=== PATIENT | male | born 1945 | race Caucasian/White ===

== ENCOUNTER 2017-01-05 10:13 | Inpatient (IN) | payer MEDICARE, BC ==
[~2017-01-05] VITALS: Ht 175.3 cm; Wt 109.8 kg
--- NOTE | 2017-01-05 10:20 | NUR ---
MARIA FROM HOME DT "FEELING SICK" , NAUSEA AND VOMITTING SINCE YESTERDAY, PER PATIENT HE HASNT BEEN EATING FOR FEW DAYS AND FEELS WEAK. PT IS AFEBRILE. VSS. PT REPORTED RECENT CLOSE FAMILY MEMBER .
--- NOTE | 2017-01-05 11:00 | NUR ---
ASSUME PT CARE. RESTING IN BED. SYNCOPE WHILE AT A BARBERS CHAIR. STATES, FELT NAUSEATED, BEEN VOMITING SINCE YESTERDAY. STRESSED OUT BECAUSE OF A FAMILY . UPON TRANSFER PT STARTED C/O LT SIDED CHEST PAIN. ON MONITOR. VSS. AWAITING MD MOREL.
--- NOTE | 2017-01-05 11:12 | NUR ---
DR STRAUSS AT BEDSIDE FOR EVAL.
[2017-01-05] MEDS ORDERED: ONDANSETRON HCL/PF 4 MG/2 ML VIAL ONE (11:29)
[2017-01-05] MEDS ORDERED: ASPIRIN 325 MG TABLET ONE (11:29)
[2017-01-05] MEDS ORDERED: ONDANSETRON HCL/PF 4 MG/2 ML VIAL IVP ONE (11:30)
[2017-01-05] MEDS ORDERED: ASPIRIN 325 MG TABLET PO ONE (11:30)
[2017-01-05] MEDS ORDERED: IV NS 0.9% 500 ML BAG IV ONE (11:30)
--- NOTE | 2017-01-05 11:33 | NUR ---
BLOOD DRAWN FROM [facility]. SENT TO LAB.
[2017-01-05 11:39] LABS: BASOPHILS # (AUTO) 0.2 /CMM (0.0-0.2); BASOPHILS % (AUTO) 1.7 % (0.0-2.0); EOSINOPHILS # (AUTO) 0.2 /CMM (0.0-0.7); EOSINOPHILS % (AUTO) 1.7 % (0.0-6.0); HEMATOCRIT 54 % (39-51); HEMOGLOBIN 18.2 g/dL (13.5-17.5); LYMPHOCYTES % (AUTO) 10.2 % (20.0-44.0); MEAN CORPUSCULAR HEMOGLOBIN 30 PG (26.0-33.0); MEAN CORPUSCULAR HGB CONC 34 g/dl (31.0-36.0); MEAN CORPUSCULAR VOLUME 87 fL (80-96); MONOCYTES # (AUTO) 0.8 /CMM (0.1-1.30); MONOCYTES % (AUTO) 8.1 % (2.0-12.0); NEUTROPHILS % (AUTO) 78.3 % (43.0-81.0); PLATELET COUNT (AUTO) 180 /CMM (150-450); RDW COEFFICIENT OF VARIATION 13.8 (11.5-15.0); RED BLOOD CELL COUNT(AUTO) 6.16 MIL/uL (4.5-6.0); WHITE BLOOD COUNT (AUTO) 10.2 K/uL (4.3-11.0)
--- NOTE | 2017-01-05 11:43 | NUR ---
RADIOLOGY AT BEDSIDE FOR CHEST XRAY.
[2017-01-05 11:49] LABS: CALCIUM, SERUM 9.2 mg/dL (8.5-10.1); CARBON DIOXIDE 24 mmol/L (21-32); CHLORIDE 103 mmol/L (98-107); CREATININE 1.4 mg/dL (0.6-1.3); GLUCOSE 321 mg/dL (74-106); POTASSIUM 5.6 mmol/L (3.5-5.1); SODIUM SERUM 136 mmol/L (136-145); UREA NITROGEN, BLOOD 25 mg/dL (7-18)
[2017-01-05 11:53] LABS: INR 0.95 (0.87-1.13); PROTHROMBIN TIME 9.9 SECS (9.5-12.7)
[2017-01-05 11:55] LABS: ALANINE AMINOTRANSFERASE 23 U/L (12-78); ALBUMIN 3.5 g/dL (3.4-5.0); ALKALINE PHOSPHATASE 82 U/L (46-116); ASPARTATE AMINOTRANSFERASE 19 U/L (15-37); BILIRUBIN,DIRECT 0.2 mg/dL (0.0-0.2); BILIRUBIN,TOTAL 0.8 mg/dL (0.2-1.0); TOTAL PROTEIN, SERUM 7.7 g/dL (6.4-8.2)
[2017-01-05 11:57] LABS: TROPONIN I < 0.017 ng/mL (0.00-0.056)
[2017-01-05] MEDS ORDERED: BENZOIN COMPOUND TINCT 60 ML BOTTLE TP ONE (12:00)
[2017-01-05 12:10] LABS: LYMPHOCYTES % (MANUAL) 8 % (16-48); MONOCYTES % (MANUAL) 3 % (0-11.0); NEUTROPHILS % (MANUAL) 89 (42-76)
[2017-01-05] MEDS ORDERED: IV NS 0.9% 250 ML IV ONE (12:17)
[2017-01-05] MEDS ORDERED: IOHEXOL-300 100 ML VIAL IV ONE (12:17)
--- NOTE | 2017-01-05 12:25 | NUR ---
PT TO RADIOLOGY FOR ABDOMINAL CT SCAN VIA WHEELCHAIR.
[2017-01-05] MEDS ORDERED: IV NS 0.9% 1,000 ML BAG IV ONE ×2 (12:30→14:00)
--- NOTE | 2017-01-05 13:41 | NUR ---
called house sup for tele bed
--- NOTE | 2017-01-05 13:42 | NUR ---
called epic for pt admit
[2017-01-05] MEDS ORDERED: GEMF600T3 PO (13:54)
[2017-01-05] MEDS ORDERED: ATEN25TA PO (13:54)
[2017-01-05] MEDS ORDERED: METF500T4 PO (13:54)
[2017-01-05] MEDS ORDERED: BENA10TA2 PO (13:54)
[2017-01-05] MEDS ORDERED: GLIP5TAB13 PO (13:54)
[2017-01-05] MEDS ORDERED: ASPI81TA2 PO (13:54)
[2017-01-05] MEDS ORDERED: INSULIN REGULAR, HUMAN 100 UNIT/ML 10 ML VIAL IV ONE (14:00)
[2017-01-05] MEDS ORDERED: CALCIUM CHLORIDE 1,000 MG/10 ML DISP.SYRIN IV ONE (14:00)
[2017-01-05] MEDS ORDERED: SODIUM BICARBONATE SYR 50 MEQ/50 ML DISP.SYRIN IV ONE (14:00)
[2017-01-05] MEDS ORDERED: DEXTROSE 50%-WATER 50 ML DISP.SYRIN IV ONE (14:00)
--- NOTE | 2017-01-05 14:01 | NUR ---
BED ASSIGNMENT TELE 310-1
[2017-01-05] MEDS ORDERED: DEXTROSE 50%-WATER 50 ML DISP.SYRIN ONE (14:02)
[2017-01-05] MEDS ORDERED: CALCIUM CHLORIDE 1,000 MG/10 ML DISP.SYRIN ONE (14:02)
[2017-01-05] MEDS ORDERED: INSULIN REGULAR, HUMAN 100 UNIT/ML 10 ML VIAL ONE (14:03)
--- NOTE | 2017-01-05 14:20 | NUR ---
DR GUIDO MADE AWARE OF SODIUM BICARB SHORTAGE PER PHARMACY. SODIUM BICARB ORDER D/C'D.
[2017-01-05] MEDS ORDERED: IV NS 0.9% 1,000 ML IV PRN (14:24)
[2017-01-05] MEDS ORDERED: ZOLPIDEM TARTRATE 5 MG TABLET PO PRN (14:30)
[2017-01-05] MEDS ORDERED: MAG HYDROX/AL HYDROX/SIMETH 30 ML UDC PO PRN (14:30)
[2017-01-05] MEDS ORDERED: HYDROCODONE/APAP 5/325MG 1 EACH TABLET PO PRN (14:30)
[2017-01-05] MEDS ORDERED: ALPRAZOLAM 0.25 MG TABLET PO PRN (14:30)
[2017-01-05] MEDS ORDERED: ONDANSETRON HCL/PF 4 MG/2 ML VIAL IVP PRN (14:30)
[2017-01-05] MEDS ORDERED: Z GUARD REMEDY 2 OZ OINT TP PRN (14:30)
[2017-01-05] MEDS ORDERED: DEXTROSE 50%-WATER 50 ML DISP.SYRIN IV PRN (14:30)
[2017-01-05] MEDS ORDERED: MAGNESIUM HYDROXIDE 30 ML UDC PO PRN (14:30)
[2017-01-05] MEDS ORDERED: ACETAMINOPHEN 325 MG TABLET PO PRN (14:30)
--- NOTE | 2017-01-05 14:43 | NUR ---
REPORT GIVEN TO RAAD. PT AWAITING TRANSFER TO FLOOR.
[2017-01-05 15:40] VITALS: BP 116/78
[2017-01-05 16:00] VITALS: BP 116/78
--- NOTE | 2017-01-05 17:30 | NUR ---
RN NOTES ADMISSION RECEIVED PT. A&OX4. BREATHING UNLABORED AND EVENLY. IV ACCESS LEFT ANTECUBITAL INTACT AND PATENT WITH SALINE FLUSH. PT. REPORTED HIS MOTHER RECENTLY. WILL ASSESS AND MONITOR.
--- NOTE | 2017-01-05 17:35 | NUR ---
RN NOTES PLACED PT. ON TELE MONITOR AND HAS SINUS RHYTHM 81 BPM.
[2017-01-05] MEDS: BLOOD SUGAR DIAGNOSTIC 1 EACH STRIP VI SCH ×2 (19:00→22:12)
[2017-01-05] MEDS: glipiZIDE 5 MG TABLET PO SCH (19:30)
[2017-01-05] MEDS: METFORMIN 500 MG TABLET PO SCH (19:30)
--- NOTE | 2017-01-05 19:30 | NUR ---
RN NOTES RECEIVED PT AWAKE ON BED, A/OX4, SR ON TELE MONITOR HR-68, DENIES PAIN, NO SOB, CALL LIGHT WITHIN REACH, SIDERAILS UPX2 CONTINUE TO MONITOR
--- NOTE | 2017-01-05 19:30 | NUR ---
PT. HAD PELVIC.ABDOMINAL CT WITH IODINE CONTRAST AT 11:23 AM PER RADIOLOGY PT. CANNOT HAVE ANY FORM OF METFORMIN FOR 48HS. METFORMIN WAS NOT ADMINISTERED TO LOWER BLOOD SUGAR.
--- NOTE | 2017-01-05 19:45 | NUR ---
RN/TELE CLOSING NOTES PT. IN BED A&OX4. BREATHING UNLABORED AND EVENLY ON ROOM AIR. IV ACCESS INTACT AND PATENT. BED IS IN LOWEST POSITION. 2 SIDE RAILS UP, AND INSTRUCTED PT. TO USE CALL LIGHT FOR ASSISTANCE. PICTURES TAKEN OF SACRAL RASH AND PLACED PICTURE IN CHART.
[2017-01-05 20:00] VITALS: BP 105/66
--- NOTE | 2017-01-05 22:21 | NUR ---
RN NOTES BLOOD SUGAR 145- REFUSED INSULIN COVERAGE
[2017-01-06] VITALS (7 sets, daily range): BP systolic 107–116; BP diastolic 51–93
[2017-01-06 05:00] LABS: APPEARANCE,URINE CLEAR (CLEAR); BILIRUBIN,URINE NEGATIVE (NEGATIVE); BLOOD, URINE 1+ Ery/uL (NEGATIVE); COLOR,URINE YELLOW (YELLOW); KETONES,URINE NEGATIVE (NEGATIVE); LEUKOCYTE ESTERASE ,URINE NEGATIVE (NEGATIVE); NITRITE, URINE NEGATIVE (NEGATIVE); PH,URINE 5.5 (5.0-8.0); PROTEIN,URINE TRACE mg/dl (NEGATIVE); UGLUCOSE TRACE mg/dL (NEGATIVE); UROBILINOGEN,URINE 0.2 EU/dL (0.2)
[2017-01-06 05:16] LABS: BACTERIA,URINE None seen /HPF (None Seen); RBC,URINE 0-2 /HPF (0-2); SQUAMOUS EPITHELIAL CELL,UR Rare /HPF (None Seen); WBC,URINE 0-2 /HPF (0-3)
--- NOTE | 2017-01-06 06:26 | NUR ---
RN NOTES PT BLOOD SUGAR-133 REFUSED INSULIN COVERAGE.. PT STATED THAT HE DOESN'T TAKE INSULIN AT HOME
--- NOTE | 2017-01-06 06:27 | NUR ---
RN NOTES AWAKE, DENIES PAIN, STILL REFUSING TO HOOK BACK ON HIS IV FLUID, NO SOB, MORNING CARE RENDERED, PT. NEEDS ATTENDED
[2017-01-06 06:36] LABS: BASOPHILS % (AUTO) 0.4 % (0.0-2.0); EOSINOPHILS # (AUTO) 0.4 /CMM (0.0-0.7); EOSINOPHILS % (AUTO) 4.6 % (0.0-6.0); HEMATOCRIT 52 % (39-51); HEMOGLOBIN 17.2 g/dL (13.5-17.5); LYMPHOCYTES # (AUTO) 1.9 /CMM (0.8-4.8); LYMPHOCYTES % (AUTO) 20.3 % (20.0-44.0); MEAN CORPUSCULAR HEMOGLOBIN 29 PG (26.0-33.0); MEAN CORPUSCULAR HGB CONC 33 g/dl (31.0-36.0); MEAN CORPUSCULAR VOLUME 88 fL (80-96); MONOCYTES % (AUTO) 10.3 % (2.0-12.0); NEUTROPHILS % (AUTO) 64.4 % (43.0-81.0); PLATELET COUNT (AUTO) 161 /CMM (150-450); RDW COEFFICIENT OF VARIATION 14.6 (11.5-15.0); RED BLOOD CELL COUNT(AUTO) 5.94 MIL/uL (4.5-6.0); WHITE BLOOD COUNT (AUTO) 9.2 K/uL (4.3-11.0)
[2017-01-06 06:53] LABS: CALCIUM, SERUM 8.9 mg/dL (8.5-10.1); CREATININE 1.3 mg/dL (0.6-1.3); MAGNESIUM 1.8 mg/dL (1.8-2.4); PHOSPHORUS 4.3 mg/dL (2.5-4.9); POTASSIUM 4.5 mmol/L (3.5-5.1)
[2017-01-06] MEDS: BLOOD SUGAR DIAGNOSTIC 1 EACH STRIP VI SCH ×4 (07:45→21:30)
--- NOTE | 2017-01-06 08:00 | NUR ---
RN NOTES RECEIVED PATIENT IN THE ROOM, A/O X3, NO RESPIRATORY DISTRESS, V/S STABLE, ENCOURAGED TO EXPRESS FEELINGS AND CONCERNS. PATIENT DENIED PAIN AT THIS TIME, PATIENT MED COMPLIANT, ENCOURAGED TO INCREASE FLUID INTAKE, PATIENT AMBULATORY, SAFETY PRECAUTION MAINTAINED ALL THE TIME. CALL LIGHT WITHIN THE PATIENT TO REACH. CONTINUED MO MONITORING.
[2017-01-06] MEDS: METFORMIN 500 MG TABLET PO SCH ×3 (08:24→16:34)
[2017-01-06] MEDS: glipiZIDE 5 MG TABLET PO SCH ×2 (08:24→17:01)
[2017-01-06] MEDS: ASPIRIN 81 MG TAB.CHEW PO SCH (08:24)
[2017-01-06] MEDS: BENAZEPRIL HCL 10 MG TABLET PO SCH (08:25)
[2017-01-06] MEDS ORDERED: ATENOLOL 25 MG TABLET PO SCH (09:00)
[2017-01-06] MEDS ORDERED: GEMFIBROZIL 600 MG TABLET PO SCH (09:00)
[2017-01-06] MEDS: ATORVASTATIN 10 MG TABLET PO SCH (09:30)
[2017-01-06] MEDS: CARVEDILOL 12.5 MG TABLET PO SCH ×2 (09:41→21:30)
[2017-01-06] MEDS: INSULIN REGULAR, HUMAN 100 UNIT/ML 3 ML VIAL SQ PRN ×2 (13:10→17:03)
[2017-01-06] MEDS: ALPRAZOLAM 0.25 MG TABLET PO PRN ×2 (13:14→21:42)
--- NOTE | 2017-01-06 13:14 | NUR ---
RN NOTES PATIENT IN THE ROOM WITH FAMILY MEMBER, BS-234 MG/DL, V/S STABLE, ANXIOUS, ADMINISTERED XANAX 1 MG PO PRN PER PATIENT REQUEST, NO ACUTE DISTRESS, CALL LIGHT WITHIN THE PATIENT TO REACH, SAFETY PRECAUTION MAINTAINED ALL THE TIME. CONTINUED MONITORING.
--- NOTE | 2017-01-06 16:00 | NUR ---
RN NOTES PATIENT STABLE AT THIS TIME, MEDICATION WERE ADMINISTERED FOR ANXIETY EFFECTIVE, FAMILY NEXT TO THE PATIENT, NO ACUTE / NO RESPIRATORY DISTRESS, CALL LIGHT WITHIN TO REACH, SAFETY PRECAUTION MAINTAINED ALL THE TIME.
--- NOTE | 2017-01-06 18:40 | NUR ---
RN NOTES PATIENT IN THE ROOM, NO ACUTE DISTRESS, BS-208 MG/DL, PATIENT MED COMPLIANT, V/S STABLE, PATIENT AMBULATORY SELF CARE, FAMILY NEXT TO THE BED. CALL LIGHT WITHIN TO REACH, SAFETY PRECAUTION MAINTAINED ALL THE TIME. ONCOMING NURSE NOTIFIED CONTINUED PLAN OF CARE.
--- NOTE | 2017-01-06 19:40 | NUR ---
LOGISTICS PLANNING MANAGER NOTE: PATIENT RESTING IN BED, NO ACUTE DISTRESS NOTED. BREATHING EVEN AND UNLABORED, NO SOB NOTED. PATIENT CONTINUES TO REFUSE TO HAVE IV INSERTED, EXPLAINED RISK AND BENEFITS, BUT CONTINUE TO REFUSED AT THIS TIME. NO S/S OF HYPER/HYPOGLYCEMIA NOTED. BED LOCKED AND IN LOWEST POSITION, CALL LIGHT IN REACH. WILL CONTINUE TO MONITOR.
--- NOTE | 2017-01-06 21:45 | NUR ---
SOIL TECHNOLOGIST NOTE: PATIENT BLOOD SUGAR LEVEL 190 MG/DL, PATIENT TO RECEIVE 3 UNITS OF INSULIN PER SLIDING SCALE. NO S/S OF HYPERGLYCEMIA NOTED. WILL CONTINUE TO MONITOR.
[2017-01-06] MEDS: *INSULIN REGULAR(HUMULIN R)HUM 100 UNIT/ML VIAL SQ PRN (21:53)
--- NOTE | 2017-01-06 22:00 | NUR ---
VISITING HOUSEKEEPER NOTE: PATIENT REQUESTING XANAX, XANAX 1MG ORAL GIVE PER MD ORDER. WILL CONTINUE TO MONITOR.
[2017-01-07] VITALS: BP 104/76
[2017-01-07 04:00] VITALS: BP 130/74
[2017-01-07 06:25] LABS: BASOPHILS % (AUTO) 0.3 % (0.0-2.0); EOSINOPHILS # (AUTO) 0.5 /CMM (0.0-0.7); EOSINOPHILS % (AUTO) 5.1 % (0.0-6.0); HEMATOCRIT 53 % (39-51); HEMOGLOBIN 17.6 g/dL (13.5-17.5); LYMPHOCYTES # (AUTO) 1.9 /CMM (0.8-4.8); LYMPHOCYTES % (AUTO) 21.6 % (20.0-44.0); MEAN CORPUSCULAR HEMOGLOBIN 29 PG (26.0-33.0); MEAN CORPUSCULAR HGB CONC 33 g/dl (31.0-36.0); MEAN CORPUSCULAR VOLUME 88 fL (80-96); MONOCYTES # (AUTO) 0.9 /CMM (0.1-1.30); NEUTROPHILS # (AUTO) 5.6 /CMM (1.8-8.9); PLATELET COUNT (AUTO) 161 /CMM (150-450); RDW COEFFICIENT OF VARIATION 14.1 (11.5-15.0); RED BLOOD CELL COUNT(AUTO) 6.06 MIL/uL (4.5-6.0); WHITE BLOOD COUNT (AUTO) 8.8 K/uL (4.3-11.0)
--- NOTE | 2017-01-07 06:25 | NUR ---
BENCH ASSEMBLER OPERATOR NOTE: PATIENT RESTING IN BED, NO ACUTE DISTRESS NOTED. BREATHING EVEN AND UNLABORED, NO SOB NOTED. PATIENT BLOOD SUGAR LEVEL 258 MG/DL, PATIENT TO RECEIVE 9 UNITS OF INSULIN PER SLIDING SCALE. NO S/S OF HYPER/HYPOGLYCEMIA NOTED. BED LOCKED AND IN LOWEST POSITION, CALL LIGHT IN REACH. WILL ENDORSE TO DAY NURSE TO CONTINUE WITH PLAN OF CARE. Addendum: 01/07/17 at 0646 by ANDREE CORRALES RN TELE READING SR WITH BBB 73
[2017-01-07 06:39] LABS: CALCIUM, SERUM 8.3 mg/dL (8.5-10.1); CREATININE 1.5 mg/dL (0.6-1.3); MAGNESIUM 1.9 mg/dL (1.8-2.4); PHOSPHORUS 3.5 mg/dL (2.5-4.9); POTASSIUM 4.1 mmol/L (3.5-5.1)
[2017-01-07] MEDS: INSULIN REGULAR, HUMAN 100 UNIT/ML 3 ML VIAL SQ PRN ×3 (06:41→17:06)
[2017-01-07] MEDS: BLOOD SUGAR DIAGNOSTIC 1 EACH STRIP VI SCH ×4 (06:42→22:00)
--- NOTE | 2017-01-07 07:52 | NUR ---
RELIEF DRILLER: INITIAL NOTE RECEIVED PT A/OX4. ON TELE MONITOR. WITH SR OF 75. NO DISTRESS NOTED. NO SOB NOTED. ON ROOM AIR SATING AT 97%. NO PAIN NOTED. AMBULATORY WITH OUT ASSIST. ON [facility] [place] DIET. REFUSED IV. NO FLUIDS RUNNING. ALL RISKS AND BENEFITS ABOUT IV REFUSAL EXPLAINED. RESTING COMFORTABLY IN BED. CALL LIGHT WITHIN REACH.
[2017-01-07 08:00] VITALS: BP 137/82
[2017-01-07] MEDS: CARVEDILOL 12.5 MG TABLET PO SCH ×2 (08:22→21:44)
[2017-01-07] MEDS: glipiZIDE 5 MG TABLET PO SCH ×2 (08:22→16:58)
[2017-01-07] MEDS: ATORVASTATIN 10 MG TABLET PO SCH (08:22)
[2017-01-07] MEDS: METFORMIN 500 MG TABLET PO SCH ×2 (08:23→15:11)
[2017-01-07] MEDS: BENAZEPRIL HCL 10 MG TABLET PO SCH (08:23)
[2017-01-07] MEDS: FENOFIBRATE NANOCRYS (145 MG) 145 MG TABLET PO SCH (08:23)
[2017-01-07] MEDS: ASPIRIN 81 MG TAB.CHEW PO SCH (08:23)
[2017-01-07] MEDS: ALPRAZOLAM 0.25 MG TABLET PO PRN (11:54)
--- NOTE | 2017-01-07 15:55 | NUR ---
IV ON L FA #20 INSERTED. SITE CLEAR. NO REDNESS NOTED. NO PAIN.
[2017-01-07 16:00] VITALS: BP 129/82
--- NOTE | 2017-01-07 16:05 | NUR ---
PT TAKEN TO RADIOLOGY FOR CT OF ABD STAT WITH OUT CONTRAST.
--- NOTE | 2017-01-07 16:25 | NUR ---
PT RETURNED FROM RADIOLOGY AFTER CT SCAN OF ABD WITH OUT CONTRAST. NO CHANGES IN CONDITION NOTED. STABLE.
[2017-01-07] MEDS ORDERED: LEVOFLOXACIN 500 MG /D5W 100ML 500 MG in PREMIX 1 EA IV SCH (16:30)
[2017-01-07] MEDS: IV NS 0.9% 1,000 ML IV PRN (16:58)
[2017-01-07] MEDS: MORPHINE SULFATE INJ 2 MG/ML DISP.SYRIN IV PRN ×2 (17:31→21:40)
[2017-01-07] MEDS: METRONIDAZOLE 500MG/ NS 100ML 500 MG in PREMIX 1 EA IV SCH (18:31)
--- NOTE | 2017-01-07 18:59 | NUR ---
PT A/OX3. TOOK ALL MEDICATIONS ON TIME. NO ADVERSE REACTIONS NOTED. PAIN CONTROLLED WITH PAIN MEDICATIONS. NO DISTRESS. NO SOB. NO N/V NOTED. SATING AT 96% ON ROOM AIR. AMBULATORY WITH OUT ASSIST. ON [facility] DIET. L FA #20 IV RUNNING NS AT 100ML/HR. INSULIN ADMINISTERED PER MD ORDER. RESTING COMFORTABLY IN BED. CALL LIGHT WITHIN REACH.
--- NOTE | 2017-01-07 20:30 | NUR ---
Patient ambulating the hallways with his visitor and is steady on his legs. Verbalizes his needs talkative. Co pain right calf offered [place] refused said he needed the Morphine. He is in good spirits. No c/o dizziness Reminded him to call me when need to get OOB for safety
[2017-01-07 20:36] VITALS: BP 122/74
[2017-01-07] MEDS: *INSULIN REGULAR(HUMULIN R)HUM 100 UNIT/ML VIAL SQ PRN (21:52)
[2017-01-08] MEDS: BLOOD SUGAR DIAGNOSTIC 1 EACH STRIP VI SCH ×3 (00:01→12:19)
[2017-01-08] MEDS: MORPHINE SULFATE INJ 2 MG/ML DISP.SYRIN IV PRN ×2 (01:38→06:04)
[2017-01-08] MEDS: METRONIDAZOLE 500MG/ NS 100ML 500 MG in PREMIX 1 EA IV SCH ×2 (01:38→11:02)
[2017-01-08] MEDS: IV NS 0.9% 1,000 ML IV PRN (05:50)
[2017-01-08 05:55] LABS: BASOPHILS % (AUTO) 0.3 % (0.0-2.0); EOSINOPHILS # (AUTO) 0.3 /CMM (0.0-0.7); EOSINOPHILS % (AUTO) 3.9 % (0.0-6.0); HEMATOCRIT 55 % (39-51); HEMOGLOBIN 18.2 g/dL (13.5-17.5); LYMPHOCYTES # (AUTO) 1.6 /CMM (0.8-4.8); LYMPHOCYTES % (AUTO) 18.6 % (20.0-44.0); MEAN CORPUSCULAR HEMOGLOBIN 29 PG (26.0-33.0); MEAN CORPUSCULAR HGB CONC 33 g/dl (31.0-36.0); MEAN CORPUSCULAR VOLUME 88 fL (80-96); MONOCYTES # (AUTO) 0.7 /CMM (0.1-1.30); NEUTROPHILS # (AUTO) 6.1 /CMM (1.8-8.9); NEUTROPHILS % (AUTO) 69.2 % (43.0-81.0); PLATELET COUNT (AUTO) 173 /CMM (150-450); RDW COEFFICIENT OF VARIATION 14.4 (11.5-15.0); WHITE BLOOD COUNT (AUTO) 8.8 K/uL (4.3-11.0)
[2017-01-08 06:02] LABS: CALCIUM, SERUM 8.9 mg/dL (8.5-10.1); CREATININE 1.3 mg/dL (0.6-1.3); PHOSPHORUS 3.8 mg/dL (2.5-4.9); POTASSIUM 4.6 mmol/L (3.5-5.1)
[2017-01-08] MEDS: INSULIN REGULAR, HUMAN 100 UNIT/ML 3 ML VIAL SQ PRN ×2 (06:12→12:23)
--- NOTE | 2017-01-08 07:00 | NUR ---
awake most of y\the night, refuses to ambulate with the IV pump and IV infusing. medicated Q4h for right calf pain and abd pain. Morphine effective
--- NOTE | 2017-01-08 07:30 | NUR ---
MS RN AM NOTE RECEIVED PT A/OX4. NO DISTRESS NOTED. NO SOB NOTED. ON ROOM AIR SATING AT 94%. NO PAIN NOTED. AMBULATORY. ON [facility] DIET. LEFT FA G20 WITH NS AT 100 ML/HR INFUSING WELL, SITE CLEAR. DISCUSSED POC FOR TODAY. CALL LIGHT WITHIN REACH. WILL CONTINUE TO MONITOR.
[2017-01-08 08:00] VITALS: BP 119/77
[2017-01-08] MEDS: METFORMIN 500 MG TABLET PO SCH (09:14)
[2017-01-08] MEDS: ASPIRIN 81 MG TAB.CHEW PO SCH (09:14)
[2017-01-08] MEDS: ATORVASTATIN 10 MG TABLET PO SCH (09:15)
[2017-01-08] MEDS: glipiZIDE 5 MG TABLET PO SCH (09:15)
[2017-01-08] MEDS: FENOFIBRATE NANOCRYS (145 MG) 145 MG TABLET PO SCH (09:15)
[2017-01-08] MEDS: CARVEDILOL 12.5 MG TABLET PO SCH (09:15)
[2017-01-08] MEDS: BENAZEPRIL HCL 10 MG TABLET PO SCH (09:15)
--- NOTE | 2017-01-08 09:30 | NUR ---
MS RN NOTE ADMINISTERED DUE MEDS.
--- NOTE | 2017-01-08 11:02 | NUR ---
MS RN NOTES STARTED FLAGYL IV.
--- NOTE | 2017-01-08 12:21 | NUR ---
MS RN NOTES ACCUCHECK. BS 271 MG/DL, ADMINISTERED 9 UNITS HUM R PER SLIDING SCALE.
[2017-01-08 13:30] VITALS: BP 119/77
--- NOTE | 2017-01-08 13:32 | NUR ---
MS RN NOTES PATIENT DISCHARGED TODAY TO HOME PER BEN OROZCO. PROVIDED DC INSTRUCTIONS, MED RECON LIST AND PRESCRIPTIONS, HEALTH TEACHINGS. PATIENT TO FOLLOW UP WITH PCP AND DR. PEARCE IN 1 WEEK. WILL MAKE OWN APPOINTMENT. LEFT FA IV ACCESS REMOVED, NO BLEEDING, DRESSING IN PLACE. ALL BELONGINGS CHECKED AND RETURNED. ALL PAPER WORKS SIGNED. PATIENT TO GO HOME VIA PRIVATE CAR BY FRIEND. Addendum: 01/08/17 at 1446 by MARGARITO DUBON RN ADDENDUM: BOTH PATIENT AND FRIEND IN A HURRY FOR OF PT'S MOM. REFUSED PHOTOS OF SKIN ISSUES.
== END 2017-01-08 13:30 | disposition home or self-care (01) | DRG 371 ==
LOC: ER 10:16 → TELE 15:02 → MED 01-07 12:46
PROVIDERS: ADMIT Internal Medicine; ATTEND Internal Medicine
DX: A04.9 Bacterial intestinal infection, unspecified (principal); N17.0 Acute kidney failure with tubular necrosis; E11.22 Type 2 diabetes mellitus with diabetic chronic kidney disease; J44.9 Chronic obstructive pulmonary disease, unspecified; E11.65 Type 2 diabetes mellitus with hyperglycemia; E87.5 Hyperkalemia; R55 Syncope and collapse; E86.0 Dehydration; D63.8 Anemia in other chronic diseases classified elsewhere; E78.5 Hyperlipidemia, unspecified; I12.9 Hypertensive chronic kidney disease with stage 1 through stage 4 chronic kidney disease, or unspecified chronic kidney disease; Z79.84 Long term (current) use of oral hypoglycemic drugs; Z79.82 Long term (current) use of aspirin; N18.9 Chronic kidney disease, unspecified; K21.9 Gastro-esophageal reflux disease without esophagitis; R33.9 Retention of urine, unspecified; K57.90 Diverticulosis of intestine, part unspecified, without perforation or abscess without bleeding; K76.0 Fatty (change of) liver, not elsewhere classified; N40.0 Benign prostatic hyperplasia without lower urinary tract symptoms; I51.7 Cardiomegaly; E66.9 Obesity, unspecified; Z68.35 Body mass index [BMI] 35.0-35.9, adult; G47.33 Obstructive sleep apnea (adult) (pediatric); F19.11 Other psychoactive substance abuse, in remission; F10.21 Alcohol dependence, in remission
CPT/HCPCS: 36415; 71010-TC; 80048-TC; 80061-TC; 80076-TC; 81000-TC; 82962-TC; 83735-TC; 84100-TC; 84484-TC; 85025-TC; 85730-TC; 87081-TC; 93307-TC; A4216; A4606; J1815; J1956; J2270; J2405; J3490; J7030; J7040; J7050; Q9967; Z7610

== ENCOUNTER 2017-01-11 17:30 | Inpatient (IN) | payer MEDICARE, BC ==
[~2017-01-11] VITALS: Ht 177.8 cm; Wt 121.1 kg
[~2017-01-11 17:30] MED LIST: ASPI81TA2 PO; ATEN25TA PO; BENA10TA2 PO; GEMF600T3 PO; GLIP5TAB13 PO; METF500T4 PO
--- NOTE | 2017-01-11 17:35 | NUR ---
PAIN AND SWELLING TO L ARM AT SITE OF IV INSERTION 4 DAYS EDGE SETTER
[2017-01-11 18:11] LABS: BASOPHILS # (AUTO) 0.3 /CMM (0.0-0.2); BASOPHILS % (AUTO) 3.5 % (0.0-2.0); EOSINOPHILS # (AUTO) 0.4 /CMM (0.0-0.7); EOSINOPHILS % (AUTO) 4.4 % (0.0-6.0); HEMATOCRIT 53 % (39-51); HEMOGLOBIN 17.8 g/dL (13.5-17.5); LYMPHOCYTES # (AUTO) 1.9 /CMM (0.8-4.8); LYMPHOCYTES % (AUTO) 20.1 % (20.0-44.0); MEAN CORPUSCULAR HEMOGLOBIN 29 PG (26.0-33.0); MEAN CORPUSCULAR HGB CONC 34 g/dl (31.0-36.0); MEAN CORPUSCULAR VOLUME 86 fL (80-96); MONOCYTES # (AUTO) 1.1 /CMM (0.1-1.30); PLATELET COUNT (AUTO) 225 /CMM (150-450); RDW COEFFICIENT OF VARIATION 13.5 (11.5-15.0); RED BLOOD CELL COUNT(AUTO) 6.15 MIL/uL (4.5-6.0); WHITE BLOOD COUNT (AUTO) 9.7 K/uL (4.3-11.0)
[2017-01-11 18:22] LABS: CALCIUM, SERUM 9.1 mg/dL (8.5-10.1); CREATININE 1.3 mg/dL (0.6-1.3); POTASSIUM 4.2 mmol/L (3.5-5.1)
[2017-01-11 18:28] LABS: ALBUMIN 3.6 g/dL (3.4-5.0); BILIRUBIN,TOTAL 0.5 mg/dL (0.2-1.0); TOTAL PROTEIN, SERUM 7.7 g/dL (6.4-8.2)
[2017-01-11 18:34] LABS: INR 1.01 (0.87-1.13); PROTHROMBIN TIME 10.5 SECS (9.5-12.7)
--- NOTE | 2017-01-11 19:12 | NUR ---
YARD PILOT AT BEDSIDE
--- NOTE | 2017-01-11 19:13 | NUR ---
GAVE REPORT TO JASPREET FOR LORI
--- NOTE | 2017-01-11 19:15 | NUR ---
ongoing josé manuel venous corbin at bedside.
--- NOTE | 2017-01-11 20:05 | NUR ---
STARTED A SALINE LOCK ON THE RACG 18.
[2017-01-11] MEDS ORDERED: IV NS 0.9% 250 ML IV ONE (20:10)
[2017-01-11] MEDS ORDERED: IOHEXOL-350 100 ML VIAL IV ONE (20:10)
[2017-01-11] MEDS ORDERED: ENOXAPARIN SODIUM 80 MG/0.8 ML DISP.SYRIN SQ ONE (20:12)
[2017-01-11] MEDS ORDERED: ENOXAPARIN SODIUM 30 MG/0.3 ML DISP.SYRIN ONE (20:12)
--- NOTE | 2017-01-11 20:20 | NUR ---
VERIFIED WITH DR XAVIER, DOSING OF PATIENT AND SHE SAID OKAY TO GIVE 110MG LOVENOX SUBQ. DOSE CHECKED WITH NATHALY CARTAGENA. LOVENOX GIVEN ON THE TWYLA ARM SUBQ, PATIENT JAZIEL WELL.
[2017-01-11] MEDS ORDERED: ZOLPIDEM TARTRATE 5 MG TABLET PO PRN (20:30)
[2017-01-11] MEDS ORDERED: ACETAMINOPHEN 325 MG TABLET PO PRN (20:30)
[2017-01-11] MEDS ORDERED: ONDANSETRON HCL/PF 4 MG/2 ML VIAL IVP PRN (20:30)
[2017-01-11] MEDS ORDERED: Z GUARD REMEDY 2 OZ OINT TP PRN (20:30)
[2017-01-11] MEDS ORDERED: HYDROCODONE/APAP 5/325MG 1 EACH TABLET PO PRN (20:30)
[2017-01-11] MEDS ORDERED: MAGNESIUM HYDROXIDE 30 ML UDC PO PRN (20:30)
[2017-01-11] MEDS ORDERED: MAG HYDROX/AL HYDROX/SIMETH 30 ML UDC PO PRN (20:30)
--- NOTE | 2017-01-11 20:32 | NUR ---
PATIENT ASSIGNED TO T 314-2
--- NOTE | 2017-01-11 20:50 | NUR ---
Report given to Mercedes ANDERSEN for kade.
--- NOTE | 2017-01-11 21:06 | NUR ---
ongoing duplex corbin for lower extremity as ordered by Dr Molina.
--- NOTE | 2017-01-11 22:00 | NUR ---
TELE/SOFTWARE LICENSING EXECUTIVE DONE PER PROTOCOL, REFUSED SKIN CHECK.
--- NOTE | 2017-01-11 22:00 | NUR ---
TELE/RN RECEIVE PATIENT FROM [facility]. PATIENT IS AWAKE, ALERT, ORIENTED, COMFORTABLE, NO C/O PAIN, NO DISTRESS NOTED. MADE COMFORTABLE IN BED, PLACED CALL LIGHT IN REACH. WILL ADMIT.
--- NOTE | 2017-01-11 22:00 | NUR ---
Transferred patient to tele bed 314-1 via als protocol, no incident noted.
--- NOTE | 2017-01-11 22:17 | NUR ---
TELE/RN DR. LOZANO AT BEDSIDE TALKING TO THE PATIENT.
[2017-01-11] MEDS ORDERED: ENOXAPARIN SODIUM 30 MG/0.3 ML DISP.SYRIN SQ SCH (23:00)
[2017-01-11] MEDS ORDERED: TEMAZEPAM 15 MG CAPSULE PO PRN (23:00)
--- NOTE | 2017-01-11 23:23 | NUR ---
TELE/RN CALLED AND SPOKE TO DR. LOZANO FOR CLARIFICATION OF ORDER FOR LOVENOX AND FOR PATIENT'S HOME ANTIBIOTIC FLAGYL 500 MG PO TID FOR 2 MORE DAYS AND LEVAQUIN 500 MG PO DAILY FOR 2 MORE DAYS. ORDER AND CLARIFICATIONS RECEIVED.
[2017-01-11] MEDS ORDERED: METRONIDAZOLE 250 MG TABLET ONE (23:28)
[2017-01-11] MEDS ORDERED: TEMAZEPAM 15 MG CAPSULE ONE (23:29)
[2017-01-11] MEDS ORDERED: LEVOFLOXACIN (500MG) 500 MG TABLET PO SCH (23:30)
[2017-01-11] MEDS: METRONIDAZOLE 250 MG TABLET PO SCH (23:35)
[2017-01-11] MEDS ORDERED: glipiZIDE 5 MG TABLET ONE (23:42)
[2017-01-11] MEDS: glipiZIDE 5 MG TABLET PO SCH (23:48)
[2017-01-11] MEDS: BLOOD SUGAR DIAGNOSTIC 1 EACH STRIP IN SCH (23:51)
[2017-01-12] MEDS ORDERED: DEXTROSE 50%-WATER 50 ML DISP.SYRIN IV PRN
--- NOTE | 2017-01-12 00:50 | NUR ---
TELE/RN PATIENT IS SLEEPING AT THIS TIME, AROUSABLE, APPEAR COMFORTABLE, NO SIGNS OF DISTRESS NOTED, CALL LIGHT IN REACH. WILL CONTINUE TO MONITOR.
[2017-01-12 00:56] VITALS: BP 115/66
[2017-01-12 05:56] VITALS: BP 119/76
[2017-01-12 06:28] LABS: BASOPHILS % (AUTO) 0.6 % (0.0-2.0); EOSINOPHILS # (AUTO) 0.5 /CMM (0.0-0.7); EOSINOPHILS % (AUTO) 5.6 % (0.0-6.0); HEMATOCRIT 53 % (39-51); HEMOGLOBIN 17.8 g/dL (13.5-17.5); LYMPHOCYTES # (AUTO) 1.7 /CMM (0.8-4.8); LYMPHOCYTES % (AUTO) 19.1 % (20.0-44.0); MEAN CORPUSCULAR HEMOGLOBIN 29 PG (26.0-33.0); MEAN CORPUSCULAR HGB CONC 34 g/dl (31.0-36.0); MEAN CORPUSCULAR VOLUME 87 fL (80-96); MONOCYTES % (AUTO) 11.4 % (2.0-12.0); NEUTROPHILS # (AUTO) 5.5 /CMM (1.8-8.9); NEUTROPHILS % (AUTO) 63.3 % (43.0-81.0); PLATELET COUNT (AUTO) 166 /CMM (150-450); RDW COEFFICIENT OF VARIATION 14.5 (11.5-15.0); RED BLOOD CELL COUNT(AUTO) 6.06 MIL/uL (4.5-6.0); WHITE BLOOD COUNT (AUTO) 8.7 K/uL (4.3-11.0)
--- NOTE | 2017-01-12 06:28 | NUR ---
TELE/RN APPEAR SLEEPING, APPEAR COMFORTABLE, NO DISTRESS NOTED, ALL NEEDS ATTENDED AT THIS TIME. WILL CONTINUE TO MONITOR.
[2017-01-12 06:47] LABS: CREATININE 1.2 mg/dL (0.6-1.3); MAGNESIUM 2.1 mg/dL (1.8-2.4); PHOSPHORUS 3.7 mg/dL (2.5-4.9)
[2017-01-12 07:15] VITALS: BP 126/82
[2017-01-12] MEDS: BLOOD SUGAR DIAGNOSTIC 1 EACH STRIP IN SCH ×2 (07:53→12:18)
[2017-01-12] MEDS: INSULIN REGULAR, HUMAN 100 UNIT/ML 3 ML VIAL SQ PRN ×2 (07:55→12:17)
[2017-01-12 08:00] VITALS: BP 119/75
[2017-01-12] MEDS: METRONIDAZOLE 250 MG TABLET PO SCH ×2 (08:50→13:42)
[2017-01-12] MEDS: glipiZIDE 5 MG TABLET PO SCH (08:50)
[2017-01-12] MEDS ORDERED: GEMFIBROZIL 600 MG TABLET PO SCH (09:00)
[2017-01-12] MEDS ORDERED: METFORMIN 500 MG TABLET PO SCH (09:00)
[2017-01-12] MEDS ORDERED: ATENOLOL 25 MG TABLET PO SCH (09:00)
[2017-01-12] MEDS ORDERED: BENAZEPRIL HCL 10 MG TABLET PO SCH (09:00)
[2017-01-12] MEDS ORDERED: ASPIRIN 81 MG TAB.CHEW PO SCH (09:00)
[2017-01-12] MEDS ORDERED: MUPI22OI2 TP (10:25)
--- NOTE | 2017-01-12 10:30 | NUR ---
DR. PEARCE,BEBA CRONIN IN TO SEE PT.DC ORDERS GIVEN.
[2017-01-12 12:18] VITALS: BP 119/70
--- NOTE | 2017-01-12 14:24 | NUR ---
NO DISCHARGE PHOTO PHOTO TAKEN LAST GLENDY. AT 2300-NOT YET 24 HRS.
--- NOTE | 2017-01-12 14:45 | NUR ---
HEP LOCK OUT,IV DC,D.DC INSTRUCTIONS GIVEN.BELONGING SHEET SIGNED.TAKEN TO LOBBY ACC. BY FAMILY MEMBER.TO FOLLOW UP WITH PRIVATE MD.
[2017-01-12] MEDS ORDERED: ENOXAPARIN SODIUM 30 MG/0.3 ML DISP.SYRIN SQ SCH (21:00)
== END 2017-01-12 14:45 | disposition home health service (06) | DRG 301 ==
LOC: ER 17:32 → TELE 21:12 → MED 01-12 09:50
PROVIDERS: ADMIT Family Medicine; ATTEND Family Medicine
DX: I82.612 Acute embolism and thrombosis of superficial veins of left upper extremity (principal); E11.22 Type 2 diabetes mellitus with diabetic chronic kidney disease; G30.9 Alzheimer's disease, unspecified; F02.80 Dementia in other diseases classified elsewhere, unspecified severity, without behavioral disturbance, psychotic disturbance, mood disturbance, and anxiety; J44.9 Chronic obstructive pulmonary disease, unspecified; D63.8 Anemia in other chronic diseases classified elsewhere; E66.9 Obesity, unspecified; E78.5 Hyperlipidemia, unspecified; F17.210 Nicotine dependence, cigarettes, uncomplicated; I12.9 Hypertensive chronic kidney disease with stage 1 through stage 4 chronic kidney disease, or unspecified chronic kidney disease; K21.9 Gastro-esophageal reflux disease without esophagitis; N18.9 Chronic kidney disease, unspecified; Z68.38 Body mass index [BMI] 38.0-38.9, adult; E11.65 Type 2 diabetes mellitus with hyperglycemia; Z79.84 Long term (current) use of oral hypoglycemic drugs; R21 Rash and other nonspecific skin eruption; R07.9 Chest pain, unspecified
CPT/HCPCS: 36415; 71010-TC; 80048-TC; 80053-TC; 80061-TC; 82962-TC; 83735-TC; 84100-TC; 84484-TC; 85025-TC; 85610-TC; 85730-TC; 87081-TC; 93970-TC; 93971-TC; A4606; J1650; J1815; J7050; Q9967; Z7610

== ENCOUNTER 2017-01-18 20:50 | Emergency (ER) | payer MEDICARE, BC ==
[~2017-01-18] VITALS: Ht 177.8 cm; Wt 109.3 kg
[~2017-01-18 20:50] MED LIST changes: +MUPI22OI2 TP
--- NOTE | 2017-01-18 20:55 | NUR ---
PT C/O FEELING WEAK X 1 DAY, NAD NOTED, VSS, SKIN DRY AND WARM. PT PUT ON HOSPITAL GOWN AND MONITOR. EKG AT BS. WAITING FOR MD MOREL.
--- NOTE | 2017-01-18 21:00 | NUR ---
IV STARTED, BLOOD SAMPLE COLLECTED, URINE SENT TO LAB.
[2017-01-18 21:36] LABS: BASOPHILS # (AUTO) 0.1 /CMM (0.0-0.2); EOSINOPHILS # (AUTO) 0.4 /CMM (0.0-0.7); HEMOGLOBIN 18.5 g/dL (13.5-17.5); LYMPHOCYTES # (AUTO) 2.2 /CMM (0.8-4.8); MONOCYTES # (AUTO) 0.8 /CMM (0.1-1.30); MONOCYTES % (AUTO) 8.5 % (2.0-12.0)
[2017-01-18 21:38] LABS: BASOPHILS % (AUTO) 1.1 % (0.0-2.0); EOSINOPHILS % (AUTO) 4.7 % (0.0-6.0); HEMATOCRIT 57 % (39-51); LYMPHOCYTES % (AUTO) 23.6 % (20.0-44.0); MEAN CORPUSCULAR HEMOGLOBIN 28 PG (26.0-33.0); MEAN CORPUSCULAR HGB CONC 33 g/dl (31.0-36.0); MEAN CORPUSCULAR VOLUME 87 fL (80-96); NEUTROPHILS # (AUTO) 5.9 /CMM (1.8-8.9); NEUTROPHILS % (AUTO) 62.1 % (43.0-81.0); PLATELET COUNT (AUTO) 227 /CMM (150-450); RDW COEFFICIENT OF VARIATION 13.4 (11.5-15.0); RED BLOOD CELL COUNT(AUTO) 6.53 MIL/uL (4.5-6.0); WHITE BLOOD COUNT (AUTO) 9.4 K/uL (4.3-11.0)
[2017-01-18 21:41] LABS: CALCIUM, SERUM 9.3 mg/dL (8.5-10.1); CARBON DIOXIDE 22 mmol/L (21-32); CHLORIDE 102 mmol/L (98-107); CREATININE 1.2 mg/dL (0.6-1.3); GLUCOSE 143 mg/dL (74-106); POTASSIUM 4.3 mmol/L (3.5-5.1); SODIUM SERUM 134 mmol/L (136-145); UREA NITROGEN, BLOOD 26 mg/dL (7-18)
[2017-01-18 21:45] LABS: INR 0.93 (0.87-1.13); PROTHROMBIN TIME 9.7 SECS (9.5-12.7)
[2017-01-18 21:46] LABS: APPEARANCE,URINE Slightly Cloudy (CLEAR); BILIRUBIN,URINE Negative (NEGATIVE); BLOOD, URINE Trace-intact Ery/uL (NEGATIVE); COLOR,URINE Yellow (YELLOW); KETONES,URINE Negative (NEGATIVE); LEUKOCYTE ESTERASE ,URINE Trace (NEGATIVE); NITRITE, URINE Negative (NEGATIVE); PH,URINE 5.5 (5.0-8.0); PROTEIN,URINE 30 mg/dl (NEGATIVE); UGLUCOSE Negative (NEGATIVE); UROBILINOGEN,URINE 0.2 EU/dL (0.2)
[2017-01-18 21:47] LABS: ALANINE AMINOTRANSFERASE 26 U/L (12-78); ALBUMIN 3.5 g/dL (3.4-5.0); ALKALINE PHOSPHATASE 75 U/L (46-116); ASPARTATE AMINOTRANSFERASE 19 U/L (15-37); BILIRUBIN,DIRECT 0.1 mg/dL (0.0-0.2); BILIRUBIN,TOTAL 0.4 mg/dL (0.2-1.0); TOTAL PROTEIN, SERUM 7.7 g/dL (6.4-8.2)
[2017-01-18 21:47] LABS: BACTERIA,URINE Few /HPF (None Seen); SQUAMOUS EPITHELIAL CELL,UR Few /HPF (None Seen)
[2017-01-18 21:49] LABS: TROPONIN I < 0.017 ng/mL (0.00-0.056)
[2017-01-18] MEDS ORDERED: IV NS 0.9% 1,000 ML BAG IV ONE (22:30)
[2017-01-18 22:58] VITALS: BP 115/67
== END 2017-01-18 23:11 | disposition home or self-care (01) ==
LOC: ER 20:56
DX: E86.0 Dehydration (principal); F43.20 Adjustment disorder, unspecified; J44.9 Chronic obstructive pulmonary disease, unspecified; E78.00 Pure hypercholesterolemia, unspecified; I12.9 Hypertensive chronic kidney disease with stage 1 through stage 4 chronic kidney disease, or unspecified chronic kidney disease; E11.22 Type 2 diabetes mellitus with diabetic chronic kidney disease; N18.9 Chronic kidney disease, unspecified; Z79.82 Long term (current) use of aspirin; Z79.84 Long term (current) use of oral hypoglycemic drugs
CPT/HCPCS: 36415; 71010; 80048; 80076; 81001; 84484; 85025; 85730; 87086; 93005; 99285; A4606; J7040; 81000-TC; Z7610

== ENCOUNTER 2017-03-28 07:08 | Outpatient (CLI) | payer MEDICARE, BC ==
[~2017-03-28 07:08] MED LIST changes: +ASPI-1169 PO; -ASPI81TA2 PO
[2017-03-28] MEDS ORDERED: REGADENOSON 0.4 MG/5 ML DISP.SYRIN IVP ONE (08:00)
== END 2017-03-28 23:59 | disposition home or self-care (01) ==
LOC: NM 07:08
PROVIDERS: ATTEND Internal Medicine Interventional Cardiology
DX: R07.9 Chest pain, unspecified (principal); I10 Essential (primary) hypertension
CPT/HCPCS: 78452; A9502; J2785